=== PATIENT | female | born 1995 | race Hispanic/Latino ===

== ENCOUNTER 2020-02-24 15:36 | Observation (INO) | payer BC, MEDICAID ==
[~2020-02-24] VITALS: Ht 152.4 cm; Wt 84.8 kg
[2020-02-24 17:22] VITALS: BP 103/68
== END 2020-02-24 17:28 | disposition home or self-care (01) ==
LOC: EDH 15:36 → LDH 15:37
PROVIDERS: ADMIT Obstetrics & Gynecology; ATTEND Obstetrics & Gynecology
DX: O26.893 Other specified pregnancy related conditions, third trimester (principal); M79.89 Other specified soft tissue disorders; Z3A.39 39 weeks gestation of pregnancy
CPT/HCPCS: 93971; 99283; G0378

== ENCOUNTER 2020-02-26 11:56 | Inpatient (IN) | payer BC, MEDICAID ==
[~2020-02-26] VITALS: Ht 154.9 cm; Wt 82.6 kg
[2020-02-26 12:31] LABS: APPEARANCE,URINE Clear (CLEAR); BILIRUBIN,URINE Negative (NEGATIVE); COLOR,URINE Yellow (YELLOW); GLUCOSE, URINE (UA) Negative (NEGATIVE); KETONES,URINE Negative (NEGATIVE); LEUKOCYTE ESTERASE ,URINE Moderate (NEGATIVE); NITRATE,URINE Negative (NEGATIVE); OCCULT BLOOD,URINE Negative (NEGATIVE); PROTEIN,URINE POS 1+ mg/dL (NEGATIVE)
[2020-02-26 12:46] LABS: MUCUS,URINE Few LPF (None Seen); SQUAMOUS EPITHELIAL CELL,UR Few /HPF (0-2)
[2020-02-26 12:47] LABS: BACTERIA,URINE Few /HPF (None Seen); RBC,URINE None Seen /HPF (0-1)
[2020-02-26] MEDS ORDERED: LACTATED RINGERS 1000ML 1,000 ML IV SCH (14:00)
[2020-02-26] MEDS ORDERED: LACTATED RINGERS 1000ML 1,000 ML IV PRN (14:19)
[2020-02-26] MEDS ORDERED: LIDOCAINE HCL 1% 20 ML VIAL INJ PRN (14:30)
[2020-02-26] MEDS ORDERED: ROPIVACAINE 0.2% 100ML VIAL 100 ML EP SCH (14:30)
[2020-02-26] MEDS ORDERED: EPHEDRINE SULFATE 50 MG/ML AMPULE IVP PRN (14:30)
[2020-02-26] MEDS ORDERED: OXYTOCIN-LR 20 UNITS/1000 ML 1,000 ML IV SCH ×2 (14:30→14:45)
[2020-02-26] MEDS ORDERED: BUTORPHANOL TARTRATE 2 MG/ML IVP PRN (14:30)
[2020-02-26] MEDS ORDERED: NALOXONE HCL 0.4 MG/1 ML ML IV PRN (14:30)
[2020-02-26] MEDS ORDERED: LACTATED RINGERS 500 ML 500 ML IV PRN (14:30)
[2020-02-26 14:40] LABS: HEMATOCRIT 33.2 % (36-48); MEAN CORPUSCULAR HEMOGLOBIN 30.5 pg (27.0-33.0); MEAN CORPUSCULAR HGB CONC 34.6 g/dL (32.0-36.0); MEAN CORPUSCULAR VOLUME 88.1 fL (79-99); RED BLOOD CELL COUNT(AUTO) 3.77 MIL/uL (4.00-5.50); RED CELL DISTRIBUTION WIDTH 11.9 % (11.0-15.5); WHITE BLOOD COUNT (AUTO) 10.9 K/uL (4.8-10.8)
[2020-02-26 15:00] LABS: CREATININE 0.6 mg/dL (0.5-1.5); POTASSIUM 3.9 mmol/L (3.5-5.1)
[2020-02-26 15:06] LABS: INR 0.83 (0.85-1.15); PARTIAL THROMBOPLASTIN TIME 25.7 SEC (26.3-35.5)
[2020-02-26 15:11] LABS: ALBUMIN 2.7 g/dL (3.5-5.0); BILIRUBIN,TOTAL 0.2 mg/dL (0.2-1.0); TOTAL PROTEIN, SERUM 7.1 g/dL (6.0-8.3); URIC ACID 4.5 mg/dL (2.6-7.2)
[2020-02-26 17:14] VITALS: BP 132/67
[2020-02-26] MEDS ORDERED: PROMETHAZINE HCL 25 MG/ML 1ML AMPULE IM PRN (17:15)
[2020-02-26] MEDS ORDERED: MEPERIDINE-PF 50 MG/ML SYG IVP PRN (17:15)
[2020-02-26] MEDS ORDERED: OXYTOCIN 10 USP UNITS/ML ONE (18:43)
[2020-02-26] MEDS ORDERED: ACETAMINOPHEN 325 MG TAB PO PRN (19:15)
[2020-02-26] MEDS ORDERED: LANOLIN 30GM OINTMENT TP PRN (19:15)
[2020-02-26] MEDS ORDERED: ACETAMINOPHEN-CODEINE 300/30MG TAB PO PRN (19:15)
[2020-02-26] MEDS ORDERED: MEASLES/MUMPS/RUBELLA VACCINE, LIVE 0.5 ML/VIAL SQ PRN (19:15)
[2020-02-26] MEDS ORDERED: BENZOCAINE/LANOLIN/ALOE VERA 60 ML AEROSOL TP PRN (19:15)
[2020-02-26] MEDS ORDERED: WITCH HAZEL 1 PAD TP PRN (19:15)
[2020-02-26] MEDS ORDERED: DIPH,PERTUSS(ACELL),TET VAC/PF 0.5 ML VIAL IM PRN (19:15)
[2020-02-26 19:38] VITALS: BP 133/72
[2020-02-26] MEDS: DOCUSATE SODIUM 100 MG CAP PO SCH (20:47)
[2020-02-26 22:45] VITALS: BP 130/76
--- NOTE | 2020-02-26 22:45 | NUR ---
STATUS TEMP 100.3, ENCOURAGED TO PUSH FLUIDS, SANDWICH SERVED, DENIES ANY COMPLAINTS Addendum: 02/27/20 at 0306 by NOE VIERA LVN Amended: Links added.
[2020-02-27] MEDS: IBUPROFEN 600 MG TABLET PO PRN ×3 (00:27→13:51)
[2020-02-27 04:13] VITALS: BP 130/72
[2020-02-27 07:42] VITALS: BP_SYST 119; BP_DIAS 67; BP_DIAS 71
--- NOTE | 2020-02-27 08:00 | NUR ---
ASSESSMENT DONE AND DENIES PAIN. PATIENT STATES DOING BOTH BREAST AND BOTTLE FEEDING. ENCOURAGE PATIENT TO BREASTFEED MUCH POSSIBLE AND REINFORCED IMPORTANCE OF VS BOTTLE FEEDING. VERBALIZED NOT PRODUCING ENOUGH MILK FOR BABY. PATIENT HAS NO IV AND ENCOURAGED TO PUSH FLUIDS.
[2020-02-27] MEDS: DOCUSATE SODIUM 100 MG CAP PO SCH (08:33)
[2020-02-27 10:37] VITALS: BP 115/72
--- NOTE | 2020-02-27 13:45 | NUR ---
LAST DOSE OF METHERGINE ADMINISTERED AND PATIENT INDICATED VAGINAL BLEEDING BEING SMALL. PATIENT WAS MADE AWARE OF DOSE GIVEN BEING THE LAST DOSE. WAS MEDICATED WITH MOTRIN.
--- NOTE | 2020-02-27 15:15 | NUR ---
PATIENT WAS TAKEN VIA W/C TO FAMILY VEHICLE CARRYING BABY IN ARMS. PATIENT IS STABLE AND DENIES PAIN. ENCOURAGED TO CONTINUE TAKING MOTRIN INSTRUCTED FOR A COUPLE OF DAYS FOR THE LOWER BACK PAIN. VERBALIZED UNDERSTANDING. Addendum: 02/27/20 at 1703 by MARCELO REAL RN CHARTED IN WRONG PATIENT.
[2020-02-27 15:33] VITALS: BP 124/85
--- NOTE | 2020-02-27 18:05 | NUR ---
PATIENT WAS TAKEN VIA W/C CARRYING BABY IN ARMS TO FAMILY VEHICLE AND WAS DISCHARGED TO HER SPOUSE IN STABLE CONDITION. PATIENT DENIES PAIN AND TOLERATING ACTIVITY WELL AND HAS REMAINED AFEBRILE. PATIENT PLACED BABY IN CARSEAT AND BUCKLED BABY.
[2020-02-28 19:09] LABS: HEPATITIS Bs ANTIGEN SCREEN P Negative (Negative)
== END 2020-02-27 18:05 | disposition home or self-care (01) | DRG 807 ==
LOC: EDH 11:56 → LDH 11:57 → OBSVTOIN 11:57 → WSH 22:40
PROVIDERS: ADMIT Obstetrics & Gynecology; ATTEND Obstetrics & Gynecology
PROC: 10E0XZZ Delivery of Products of Conception, External Approach (ICD-10-PCS; principal; 2020-02-26)
PROC: 0KQM0ZZ Repair Perineum Muscle, Open Approach (ICD-10-PCS; 2020-02-26)
PROC: 10907ZC Drainage of Amniotic Fluid, Therapeutic from Products of Conception, Via Natural or Artificial Opening (ICD-10-PCS; 2020-02-26)
DX: O70.1 Second degree perineal laceration during delivery (principal); Z37.0 Single live birth; Z3A.39 39 weeks gestation of pregnancy
CPT/HCPCS: 36415; 80053; 81001; 84550; 85027; 85384; 85610; 85730; 86592; 86850; 86900; 86901; 87088; 87340; 93971; A4351; G0378; J0595; J2175; J2550; J2590; J7120

== ENCOUNTER 2020-10-29 15:32 | Observation (INO) | payer BC, MEDICAID ==
[~2020-10-29] VITALS: Ht 154.9 cm; Wt 76.2 kg
[2020-10-29] MEDS ORDERED: LACTATED RINGERS 1000ML 1,000 ML IV ONE (16:15)
[2020-10-29 16:27] LABS: BASOPHILS % (AUTO) 0.2 % (0.0-5.0); EOSINOPHILS % (AUTO) 0.1 % (0.0-8.0); HEMATOCRIT 35.2 % (36-48); MEAN CORPUSCULAR HEMOGLOBIN 30.3 pg (27.0-33.0); MEAN CORPUSCULAR HGB CONC 34.7 g/dL (32.0-36.0); MEAN CORPUSCULAR VOLUME 87.3 fL (79-99); MONOCYTES % (AUTO) 3.7 % (3.0-13.0); NEUTROPHILS % (AUTO) 91.6 % (40.0-77.0); PLATELET COUNT (AUTO) 262 K/uL (130-400); RED BLOOD CELL COUNT(AUTO) 4.03 MIL/uL (4.00-5.50); RED CELL DISTRIBUTION WIDTH 11.7 % (11.0-15.5); WHITE BLOOD COUNT (AUTO) 16.1 K/uL (4.8-10.8)
[2020-10-29] MEDS ORDERED: PROMETHAZINE HCL 25 MG/ML 1ML AMPULE IM PRN (16:30)
[2020-10-29] MEDS ORDERED: ONDANSETRON HCL 4 MG/2 ML VIAL IVP PRN (16:30)
[2020-10-29] MEDS ORDERED: ONDANSETRON HCL 4 MG/2 ML VIAL ONE (16:32)
[2020-10-29 16:36] LABS: CREATININE 0.6 mg/dL (0.5-1.5); POTASSIUM 3.6 mmol/L (3.5-5.1)
[2020-10-29 16:40] LABS: ALBUMIN 3.2 g/dL (3.5-5.0); BILIRUBIN,TOTAL 0.2 mg/dL (0.2-1.0); TOTAL PROTEIN, SERUM 8.1 g/dL (6.0-8.3)
[2020-10-29] MEDS: LACTATED RINGERS 1000ML 1,000 ML IV SCH ×2 (16:53→23:22)
[2020-10-29] MEDS: TERBUTALINE SULFATE VIAL 1MG/ML SQ PRN (18:45)
[2020-10-29 20:50] LABS: APPEARANCE,URINE Cloudy (CLEAR); BILIRUBIN,URINE Negative (NEGATIVE); COLOR,URINE Yellow (YELLOW); GLUCOSE, URINE (UA) Negative (NEGATIVE); KETONES,URINE >=160 mg/dL (NEGATIVE); LEUKOCYTE ESTERASE ,URINE Moderate (NEGATIVE); NITRATE,URINE Negative (NEGATIVE); OCCULT BLOOD,URINE Negative (NEGATIVE); PROTEIN,URINE Trace mg/dL (NEGATIVE); UROBILINOGEN,URINE 0.2 mg/dL (0.2-1.0)
[2020-10-29 20:55] LABS: RBC,URINE 0-1 /HPF (0-1); WBC,URINE 26-50 /HPF (0-1)
[2020-10-29 20:56] LABS: BACTERIA,URINE Few /HPF (None Seen); MUCUS,URINE Moderate LPF (None Seen); SQUAMOUS EPITHELIAL CELL,UR Moderate /HPF (0-2)
[2020-10-30] MEDS: TERBUTALINE SULFATE VIAL 1MG/ML SQ PRN (01:13)
[2020-10-30] MEDS: LACTATED RINGERS 1000ML 1,000 ML IV SCH (06:05)
[2020-10-30] MEDS ORDERED: LOPERAMIDE 1 MG/7.5 ML UDCUP PO PRN (07:30)
[2020-10-30 08:28] VITALS: BP 123/57
== END 2020-10-30 11:05 | disposition home or self-care (01) ==
LOC: EDH 15:32 → LDH 15:47
PROVIDERS: ADMIT Obstetrics & Gynecology; ATTEND Obstetrics & Gynecology
DX: O21.2 Late vomiting of pregnancy (principal); Z20.822 Contact with and (suspected) exposure to COVID-19; O26.893 Other specified pregnancy related conditions, third trimester; R19.7 Diarrhea, unspecified; O62.9 Abnormality of forces of labor, unspecified; Z3A.28 28 weeks gestation of pregnancy
CPT/HCPCS: 36415; 59025; 80053; 81001; 82150; 83690; 85025; 87046; 87088; 87177; 87426; 96361 ×4; 96372 ×2; 96374; 99283; G0378 ×19; J2405; J3105; J7120 ×5; 96360

== ENCOUNTER 2020-12-28 09:38 | Inpatient (IN) | payer BC, MEDICAID ==
[~2020-12-28] VITALS: Ht 154.9 cm; Wt 79.4 kg
[2020-12-28 09:45] VITALS: BP 121/81
[2020-12-28] MEDS ORDERED: DIPHENOXYLATE HCL/ATROPINE 2.5/0.025 MG TAB PO PRN (10:30)
[2020-12-28] MEDS ORDERED: ONDANSETRON 4MG INJ IVP PRN (10:30)
[2020-12-28 10:39] LABS: BASOPHILS % (AUTO) 0.2 % (0.0-5.0); EOSINOPHILS % (AUTO) 0.2 % (0.0-8.0); HEMATOCRIT 34.3 % (36-48); LYMPHOCYTES % (AUTO) 7.9 % (21.0-51.0); MEAN CORPUSCULAR HEMOGLOBIN 29.5 pg (27.0-33.0); MEAN CORPUSCULAR HGB CONC 33.5 g/dL (32.0-36.0); MEAN CORPUSCULAR VOLUME 87.9 fL (79-99); MONOCYTES % (AUTO) 4.9 % (3.0-13.0); NEUTROPHILS % (AUTO) 86.4 % (40.0-77.0); PLATELET COUNT (AUTO) 239 K/uL (130-400); RED CELL DISTRIBUTION WIDTH 12.4 % (11.0-15.5); WHITE BLOOD COUNT (AUTO) 10.5 K/uL (4.8-10.8)
[2020-12-28] MEDS: LACTATED RINGERS 1000ML 1,000 ML IV PRN ×3 (10:48→16:11)
[2020-12-28 10:51] LABS: APPEARANCE,URINE Cloudy (CLEAR); BILIRUBIN,URINE Negative (NEGATIVE); COLOR,URINE Dark Yellow (YELLOW); GLUCOSE, URINE (UA) Negative (NEGATIVE); KETONES,URINE Trace mg/dL (NEGATIVE); LEUKOCYTE ESTERASE ,URINE Moderate (NEGATIVE); NITRATE,URINE Negative (NEGATIVE); OCCULT BLOOD,URINE Negative (NEGATIVE); PH,URINE 6.5 (5.0-8.0); PROTEIN,URINE Trace mg/dL (NEGATIVE)
[2020-12-28 10:56] LABS: ALBUMIN 2.8 g/dL (3.5-5.0); BILIRUBIN,TOTAL 0.2 mg/dL (0.2-1.0); CREATININE 0.6 mg/dL (0.5-1.5); POTASSIUM 3.7 mmol/L (3.5-5.1); TOTAL PROTEIN, SERUM 7.5 g/dL (6.0-8.3)
[2020-12-28] MEDS ORDERED: TERBUTALINE SULFATE VIAL 1MG/ML SQ PRN (11:00)
[2020-12-28] MEDS ORDERED: TERBUTALINE SULFATE VIAL 1MG/ML SQ ONE (11:00)
[2020-12-28 11:16] LABS: BACTERIA,URINE Many /HPF (None Seen); RBC,URINE 0-1 /HPF (0-1)
[2020-12-28 11:17] LABS: SQUAMOUS EPITHELIAL CELL,UR Many /HPF (0-2)
[2020-12-28] MEDS ORDERED: CALCIUM GLUC 1GM/10ML VIAL IV PRN (12:30)
[2020-12-28] MEDS ORDERED: AMPICILLIN 2GM VIAL IV SCH (12:30)
[2020-12-28] MEDS ORDERED: MAGNESIUM 4GM PREMIX 100ML 100 ML IV SCH (12:30)
[2020-12-28] MEDS ORDERED: MAGNESIUM SULFATE 40GM/1000ML 1,000 ML IV SCH (12:30)
[2020-12-28] MEDS ORDERED: MAGNESIUM 4GM PREMIX 100ML 100 ML IV ONE (12:34)
[2020-12-28] MEDS ORDERED: MAGNESIUM SULFATE 40GM/1000ML 1,000 ML IV ONE (12:34)
[2020-12-28 12:51] LABS: AMPHET/METH SCREEN,URINE NEGATIVE (NEGATIVE); BARBITURATE SCREEN, URINE NEGATIVE (NEGATIVE); BENZODIAZEPINES SCREEN,URINE NEGATIVE (NEGATIVE); CANNABINOID SCREEN,URINE NEGATIVE (NEGATIVE); COCAINE SCREEN,URINE NEGATIVE (NEGATIVE); OPIATE SCREEN,URINE NEGATIVE (NEGATIVE); PHENCYCLIDINE SCREEN,URINE NEGATIVE (NEGATIVE)
[2020-12-28] MEDS: CELESTONE SOLUSPAN 6 MG/ML 5ML VIAL IM SCH (13:04)
[2020-12-28 15:50] VITALS: BP 103/59
[2020-12-28] MEDS ORDERED: AMPICILLIN 1GM VIAL IV SCH (16:00)
[2020-12-28] MEDS ORDERED: PROMETHAZINE HCL 25 MG/ML 1ML AMPULE IM PRN (16:00)
[2020-12-28] MEDS ORDERED: MEPERIDINE-PF 50 MG/ML SYG IVP PRN (16:00)
[2020-12-28] MEDS ORDERED: AMPICILLIN 1GM+NS 50ML 50 ML IV ONE (17:01)
[2020-12-29] MEDS: AMPICILLIN 1GM+NS 50ML IV SCH ×3 (00:49→12:55)
[2020-12-29 08:15] LABS: HEPATITIS Bs ANTIGEN SCREEN P Negative (Negative)
[2020-12-29 09:37] LABS: RAPID PLASMA REAGIN NONREACTIVE (NONREACTIVE)
[2020-12-29] MEDS: CELESTONE SOLUSPAN 6 MG/ML 5ML VIAL IM SCH (12:59)
[2020-12-29] MEDS: LACTATED RINGERS 1000ML 1,000 ML IV PRN (15:19)
[2020-12-30] MEDS: LACTATED RINGERS 1000ML 1,000 ML IV PRN (01:57)
== END 2020-12-30 10:30 | disposition home or self-care (01) | DRG 833 ==
LOC: EDH 09:38 → OBSVTOIN 09:39 → LDH 09:39
PROVIDERS: ADMIT Obstetrics & Gynecology; ATTEND Obstetrics & Gynecology
DX: O60.03 Preterm labor without delivery, third trimester (principal); Z3A.34 34 weeks gestation of pregnancy
CPT/HCPCS: 36415; 76805; 80053; 80305; 81001; 82150; 83690; 83735; 85025; 86592; 86701; 86850; 86900; 86901; 87088; 87340; 87390; 96360; 96361; G0378; J0290; J0702; J2405; J3105; J3475; J7120

== ENCOUNTER 2021-01-22 22:26 | Observation (INO) | payer BC, MEDICAID ==
[~2021-01-22] VITALS: Ht 185.4 cm; Wt 83.0 kg
[2021-01-22 22:58] LABS: APPEARANCE,URINE Clear (CLEAR); BILIRUBIN,URINE Negative (NEGATIVE); COLOR,URINE Yellow (YELLOW); GLUCOSE, URINE (UA) Negative (NEGATIVE); KETONES,URINE Trace mg/dL (NEGATIVE); LEUKOCYTE ESTERASE ,URINE Small (NEGATIVE); NITRATE,URINE Negative (NEGATIVE); OCCULT BLOOD,URINE Negative (NEGATIVE); PH,URINE 6.5 (5.0-8.0); PROTEIN,URINE Trace mg/dL (NEGATIVE)
[2021-01-22 23:23] LABS: BACTERIA,URINE Few /HPF (None Seen); MUCUS,URINE Few LPF (None Seen); RBC,URINE 0-1 /HPF (0-1)
[2021-01-22 23:40] VITALS: BP 120/74
[2021-01-22] MEDS ORDERED: PREN-196 PO (23:46)
== END 2021-01-23 00:15 | disposition home or self-care (01) ==
LOC: EDH 22:26 → LDH 22:27
PROVIDERS: ADMIT Obstetrics & Gynecology; ATTEND Obstetrics & Gynecology
DX: O42.92 Full-term premature rupture of membranes, unspecified as to length of time between rupture and onset of labor (principal); O26.893 Other specified pregnancy related conditions, third trimester; N89.8 Other specified noninflammatory disorders of vagina; O62.9 Abnormality of forces of labor, unspecified; Z3A.40 40 weeks gestation of pregnancy
CPT/HCPCS: 59025; 81001; 82120; G0378

== ENCOUNTER 2021-04-26 05:30 | Day surgery (SDC) | payer BC, MEDICAID ==
[2021-04-25 17:39] LABS: BASOPHILS % (AUTO) 0.6 % (0.0-5.0); EOSINOPHILS % (AUTO) 0.6 % (0.0-8.0); HEMATOCRIT 34.3 % (36-48); LYMPHOCYTES % (AUTO) 27.4 % (21.0-51.0); MEAN CORPUSCULAR HEMOGLOBIN 29.7 pg (27.0-33.0); MEAN CORPUSCULAR HGB CONC 33.5 g/dL (32.0-36.0); MEAN CORPUSCULAR VOLUME 88.6 fL (79-99); MONOCYTES % (AUTO) 10.1 % (3.0-13.0); PLATELET COUNT (AUTO) 279 K/uL (130-400); RED BLOOD CELL COUNT(AUTO) 3.87 MIL/uL (4.00-5.50); RED CELL DISTRIBUTION WIDTH 12.4 % (11.0-15.5); WHITE BLOOD COUNT (AUTO) 6.9 K/uL (4.8-10.8)
[~2021-04-26] VITALS: Ht 154.9 cm; Wt 77.7 kg
[2021-04-26 05:30] VITALS: BP 110/66
[~2021-04-26 05:30] MED LIST: PREN-196 PO
[2021-04-26] MEDS ORDERED: LACTATED RINGERS 1000ML 1,000 ML IV ONE (05:46)
[2021-04-26] MEDS ORDERED: LIDOCAINE PF 100MG/5ML (2%) SYRINGE 5ML ONE (06:57)
[2021-04-26] MEDS ORDERED: MIDAZOLAM HCL 1 MG/ML 2ML VIAL ONE (06:57)
[2021-04-26] MEDS ORDERED: DEXAMETHASONE SOD PHOSPHATE 10MG/ML 1ML VIAL ONE (06:57)
[2021-04-26] MEDS ORDERED: ONDANSETRON 4MG INJ ONE (06:57)
[2021-04-26] MEDS ORDERED: FENTANYL CITRATE PF 50 MCG/1 ML 2ML VIAL ONE (06:58)
[2021-04-26] MEDS ORDERED: PROPOFOL 10 MG/ML 20ML VIAL IV ONE (06:58)
[2021-04-26] MEDS ORDERED: MEPERIDINE-PF 50 MG/ML SYG ONE (07:00)
[2021-04-26] MEDS ORDERED: OXYTOCIN 10 USP UNITS/ML ONE (07:07)
[2021-04-26] MEDS ORDERED: PHENYLEPHRINE HCL 10 MG/ML 1ML VIAL IV ONE (07:18)
[2021-04-26] MEDS ORDERED: LACTATED RINGERS 1000ML 1,000 ML IV SCH (08:00)
[2021-04-26 08:55] VITALS: BP 110/61
[2021-04-26 09:10] VITALS: BP 108/62
[2021-04-26 09:25] VITALS: BP 106/59
== END 2021-04-26 09:35 | disposition home or self-care (01) ==
LOC: DAH 05:30
PROVIDERS: ATTEND Obstetrics & Gynecology
DX: O03.4 Incomplete spontaneous abortion without complication (principal); Z20.822 Contact with and (suspected) exposure to COVID-19
CPT/HCPCS: 36415; 59812; 85025; 86850; 86900; 86901; 87635; A4215; A4221; A4222; A4223; A4315; A4510; A4600; A4663; A6260; C9803; J1100; J2001; J2175; J2250; J2370; J2405; J2590; J2704; J7120; J3010